=== PATIENT | male | born 1955 | race Caucasian/White ===

== ENCOUNTER → 2016-10-22 | Outpatient (CLI) | payer OTHER ==
[~2016-10-22] MED LIST: ACETAMINOPHEN PO; ACETAMINOPHEN650 M4 PO; AMLODIPINE BESYL5 MG PO; ASPIRIN PO; ASPIRIN81 M1 PO; ATIVAN PO; BACLOFEN10 MG PO; BACTROBAN22 GM TOP; BACTROBAN22 GM TP; CEFTRIAXONE2 GM IV; CELEXA20 MG PO; CERTAGEN PO; COMBIVENT MININEB INH; COUMADIN10 MG PO; COUMADIN2.5 MG PO; COUMADIN5 MG PO; DAPTOMYCIN IV; DOCU SOFT100 M1 PO; DOCUSATE SODIU100 MG PO; DOXYCYCLINE HYCLATE PO; FLEXERIL10 MG PO; GLUCOTROL PO; HCTZ PO; KEPPRA750 MG PO; LASIX20 MG PO; LOPRESSOR PO; LORAZEPAM1 MG PO; LORTAB 7.5-5001 TAB PO; LOVENOX SUBQ; LYRICA PO; LYRICA200 MG PO; METOPROLOL TAR25 MG PO; METOPROLOL TART25 MG PO; METOPROLOL-HCTZ1 TA3 PO; MILK OF MAGNESIA PO; MOBIC PO; MORPHINE IR PO; MORPHINE SULFAT15 MG PO; MORPHINE SULFAT30 M3 PO; MORPHINE SULFATE ER PO; MORPHINE SULFATE IR PO; MS CONTIN PO; MS CONTIN30 MG PO; MSIR15 M1 PO; MULTI-VITAMIN1 TAB PO; PHILLIPS STOOL SOFT PO; PREVACID PO; PRILOSEC PO; PROTONIX PO; RESTORIL15 MG PO; RIFAMPIN PO; RISPERIDONE1 MG PO; SEROQUEL PO; TAMAZEPAM PO; TEMAZEPAM PO; TEMAZEPAM7.5 MG PO; VIMPAT200 MG PO; VIMPAT50 MG PO; WARFARIN PO; WARFARIN SODIU2.5 MG PO; XOPENEX CO1.25 MG/0. INH; ZANAFLEX PO
--- NOTE | ~2016-10-22 | CT57 ---
[facility] A Service of [facility] RADIOLOGY TEXT RESULTS PATIENT: ALEJANDRA MOONEY LOCATION: [facility] : 53 UNIT #: [id number] AGE: [address]: Nita Smith MD SEX: M ORDER DR: [id number] [id number] [facility]. [place], [place] [address] [id number] MR#: [id number] [facility] #: [id number] NAME: ALEJANDRA MOONEY. : 1955 SEX: M STUDY DATE/TIME: 10/22/2016 14:44 UNIT: [facility] ROOM: STUDY DESCRIPTION: CT Chest Wo Cont Attending Physician: Nita Smith M.D. Referring Physician: Nita Smith M.D. Ordering Physician: Nita Smith M.D. Primary Care Physician: Jaren Braun M.D. MEDICAL IMAGING REPORT This report is preliminary unless electronic signature is present EXAM CT of the chest without contrast INDICATIONS Follow up pneumonia, still with shortness of breath. TECHNIQUE CT of the chest was performed without contrast. Coronal and sagittal reformatted images were obtained. This CT exam was performed with one or more of the following radiation dose reduction techniques: automatic exposure control, adjustment of mA and/or kV according to patient size, and iterative reconstruction. Comparison with 08/20/2016 FINDINGS There is stable bilateral lower lobe linear atelectasis/scarring. There are no new infiltrates. Postop changes of aortic valve replacement. No pleural effusion. Tortuous aorta. No lymphadenopathy. Calcified mediastinal and hilar lymph nodes. Limited imaging of the upper abdomen is unremarkable. Bone windows demonstrate postoperative changes of the spine. IMPRESSION Stable bilateral lower lobe atelectasis or scarring. No new infiltrates in the lungs. Dictated by... Geovani Fairchild M.D. THIS IS AN ELECTRONICALLY VERIFIED REPORT Geovani Fairchild M.D. at 10/25/2016 9:00 AM [facility] A Service of [facility] RADIOLOGY TEXT RESULTS PATIENT: ALEJANDRA MOONEY LOCATION: [facility] : 53 UNIT #: [id number] AGE: [address]: Nita Smith MD SEX: M ORDER DR: Zaheer TD: 10/23/2016 08:33 JOB #: [id number] MEDICAL IMAGING REPORT Page 1 of 1 COPY
== END | disposition home or self-care (01) ==
LOC: CRC 13:42
DX: J18.9 Pneumonia, unspecified organism (principal); J44.9 Chronic obstructive pulmonary disease, unspecified
CPT/HCPCS: 71250; 94060; 94726; 94729